=== PATIENT | female | born 1990 | race Caucasian/White ===

== ENCOUNTER → 2019-12-05 11:23 | Outpatient (CLI) | payer BC, SELFPAY ==
--- NOTE | 2019-12-05 11:31 | US_ITS ---
STUDY: SECOND AND THIRD TRIMESTER OBSTETRICAL ULTRASOUND REASON FOR EXAM: Female, 29 years old ANATOMY SCAN LMP: July 23, 2019. TECHNIQUE: Transabdominal TECHNICAL QUALITY: Adequate. PRIOR ULTRASOUND: None. FINDINGS: There is a single intrauterine fetus. The fetus is in a cephalic presentation. There is demonstrated cardiac activity with a heart rate of 150 bpm. There is a normal amniotic fluid volume. The largest amniotic fluid pocket measures 4.5 cm x 6.2 cm. The amniotic fluid index ([place]) is within normal limits. The placenta is anterior in location and is not low lying. There are Grade 0 placental changes. The cervix measures 4.5 cm in length. There is a 2.3 cm x 2.4 cm cyst in the left ovary. BIOMETRY: BPD: 4.7 cm: 20 weeks, 1 days HC: 16.9 cm: 19 weeks, 4 days AC: 14.7 cm: 20 weeks, 0 days FL: 3.3 cm: 20 weeks, 1 days CI: 85% FL/BPD: 70% FL/HC: FL/AC: 22% HC/AC: 1.15 age by current US: 20 weeks, 0 days. SHERRI by current US: April 23, 2020. Estimated weight: 326 grams, +/- 48 grams, 85 %. Age by LMP: 19 weeks, 2 days. SHERRI by LMP: April 28, 2020. ANATOMY: Gender: Male Cranium: Normal lateral ventricles. Normal choroid plexus. Normal cerebellum. Normal cisterna magna. Normal face, nose and lips. Chest: Normal 4-chamber heart. Abdomen/Pelvis: Normal diaphragm. Normal stomach. Normal abdominal wall. Normal cord insertion. Normal 3 vessel cord. Normal kidneys. Normal bladder. Spine: Normal cervical spine. Normal thoracic spine. Normal lumbar spine. Normal sacrum. Extremities: Normal bilateral upper extremities. Normal bilateral lower extremities. US/OB Anatomy Scan IMPRESSION: Single live intrauterine gestation with a mean gestational age of 20 weeks. Electronically Signed: Pablo Luque, at 15:22 EDT , Service support ,
== END ==
PROVIDERS: PCP Internal Medicine
DX: Z36.3 Encounter for antenatal screening for malformations (principal)
CPT/HCPCS: 76805

== ENCOUNTER → 2020-03-07 09:22 | Outpatient (CLI) | payer BC, SELFPAY ==
--- NOTE | 2020-03-07 09:25 | US_ITS ---
STUDY: SECOND AND THIRD TRIMESTER OBSTETRICAL ULTRASOUND - LIMITED REASON FOR EXAM: Female, 29 years old GROWTH LMP: 07/24/2019. PRIOR ULTRASOUND: Comparison is made with prior examination dated 12/05/2019. TECHNIQUE: Transabdominal TECHNICAL QUALITY: Adequate. FINDINGS: There is a single intrauterine fetus. The fetus is in a cephalic presentation. There is demonstrated cardiac activity with a heart rate of 140 bpm. There is a normal amniotic fluid volume. The largest amniotic fluid pocket measures 3.7 cm. The amniotic fluid index ([place]) is 12.1 cm. The placenta is anterior in location and is not low lying. There are Grade 1 placental changes. The cervix measures 3.3 cm in length. BIOMETRY: BPD: 8.53 cm: 34 weeks, 3 days HC: 29.36 cm: 32 weeks, 3 days AC: 28.16 cm: 32 weeks, 2 days FL: 6.38 cm: 33 weeks, 0 days Age by LMP: 32 weeks, 3 days. SHERRI by LMP: 04/29/2020. age by prior US: 33 weeks, 2 days. SHERRI by prior US: 04/23/2020. age by current US: 33 weeks, 1 days. SHERRI by current US: 04/24/2020. Estimated weight: 2017 grams, +/- 2090. grams, 46 percentile. US/OB Limited (No Biometrics) IMPRESSION: Single live intrauterine gestation with a mean gestational age of 33 weeks and 2 days. The measurements obtained today fall within normal expected range. Electronically Signed: Pablo Luque, at 12:53 EDT , Service support ,
== END ==
PROVIDERS: PCP Internal Medicine
DX: O36.5930 Maternal care for other known or suspected poor fetal growth, third trimester, not applicable or unspecified (principal); Z3A.33 33 weeks gestation of pregnancy
CPT/HCPCS: 76815

== ENCOUNTER → 2024-01-04 | Outpatient (CLI) | payer OTHER, SELFPAY ==
--- NOTE | 2024-01-04 12:59 | US_ITS ---
STUDY: ULTRASOUND OF THE FEMALE PELVIS - COMPLETE REASON FOR EXAM: Female, 33 years old. History of polyp in uterus LMP: December 21, 2023. TECHNIQUE: Transabdominal and Transvaginal TECHNICAL QUALITY: Adequate. COMPARISON: None. FINDINGS: The uterus is retroverted and is in a midline position. The uterus measures 8.5 cm x 7 cm x 4.6 cm. There is thickening in the lower uterine segment/cervix with no focal mass lesion. The endometrium measures 12 mm in thickness, and is hyperechoic. There is no demonstrated endometrial mass. There is no demonstrated myometrial mass. I.U.D. - The patient does not have an I.U.D. The right ovary was not visualized. The left ovary is visualized. The left ovary measures 4.6 cm x 3.7 cm x 3 cm. A dominant follicle is seen within it. There is no left ovarian cyst or ovarian mass. There is no visualized left adnexal mass or complex lesion. There is normal arterial and normal venous vascularity. There is no fluid in the cul-de-sac. The pre void volume of the bladder was 436 ml. US/Pelvic w/ Transvaginal IMPRESSION: Thickened endometrium and lower uterine segment as described. No polyp is seen. Electronically Signed: Pablo Luque MD at 14:04 EDT ,
== END | disposition home or self-care (01) ==
LOC: US 12:57 → OPUS 13:03
PROVIDERS: PCP Internal Medicine; Referring Provider Obstetrics & Gynecology; Visit Provider Obstetrics & Gynecology
DX: N84.1 Polyp of cervix uteri (principal); N92.0 Excessive and frequent menstruation with regular cycle
CPT/HCPCS: 76830; 76856

== ENCOUNTER → 2024-02-10 | Outpatient (CLI) | payer OTHER, SELFPAY | END | disposition home or self-care (01) | LOC: LAB 09:17 | PROVIDERS: PCP Internal Medicine; Referring Provider Internal Medicine; Visit Provider Internal Medicine | DX: Z00.00 Encounter for general adult medical examination without abnormal findings (principal) ==

== ENCOUNTER 2024-02-21 09:34 | Day surgery (SDC) | payer OTHER, SELFPAY ==
[2024-02-10 09:42] LABS: Hematocrit 36.5 % (37-47); Hemoglobin 11.8 g/dL (12.0-15.0); Mean Corp Hgb Conc 32.3 g/dL (32-36); Mean Corpuscular Hgb 27.4 pg (27.0-32.0); Mean Corpuscular Volume 84.7 fL (81-99); Mean Platelet Vol. 9.5 fl (6.2-12.0); Platelet Count 227 K/mm3 (150-450); RBC Distribution Width CV 14.1 % (11.6-14.6); RBC Distribution Width SD 43.7 fl (35.1-43.9); Red Blood Count 4.31 M/mm3 (4.2-5.4); White Blood Count 5.7 K/mm3 (4.4-11.0)
[2024-02-10 10:23] LABS: ALB/GLOB Ratio 1.1 RATIO (0.9-2.4); AST(SGOT) 15 U/L (15-37); Alanine Aminotransfer ALT/SGPT 22 U/L (13-56); Albumin, Serum 3.6 g/dL (3.2-5.0); Alkaline Phosphatase 64 U/L (45-117); Anion Gap 6 (5-15); BUN 10 mg/dL (7-18); BUN/Creat Ratio 14.9 RATIO (10-20); Calcium,Total 8.3 mg/dL (8.5-10.1); Chloride 108 mmol/L (98-107); Cholesterol 189 mg/dL (200); Creatinine, Serum 0.67 mg/dL (0.55-1.02); EST Glomerular Filtration Rate 106 mL/min (>60); Est Glom Filt Rate - Afr Amer 128 mL/min (>60); Globulin 3.3 g/dL (2.2-4.2); Glucose 87 mg/dL (74-106); High Density Lipoprotein 66 mg/dL; Potassium 3.8 mmol/L (3.5-5.1); Protein, Total 6.9 g/dL (6.4-8.2); Sodium Level 139 mmol/L (136-145); Triglycerides 47 mg/dL; Very Low Density Lipoprotein 9 mg/dL (5-40)
[2024-02-21] VITALS (11 sets, daily range): BP systolic 107–119; BP diastolic 55–82; PULSE 56–82; RESP 16–17; TEMP 35.9–36.4; O2SAT 98–100; BMI 27.2
--- NOTE | 2024-02-21 09:41 | HP.PCM_ITS ---
History and Physical Date of Admission: 02/21/24 Intake Vital Signs 11/28/2414:40 02/10/2408:52 02/10/2408:54 Height 5 ft 4 in 5 ft 4 in 5 ft 4 in Weight: 154 lb 8 oz 160 lb 6 oz BMI 26.5 27.5 BP 124/76 H 116/80 Intake Visit Reasons: D&C? Telephone Answering Service Operator Required: No Is patient in pain?: No Allergies morphine Allergy (Mild, Verified 02/10/24 08:52) Vomiting Medications ?Medication ?Instructions ?Recorded ?Confirmed ?Type cholecalciferol (vitamin D3) 50 50 mcg PO DAILY 11/29/23 02/10/24 History mcg (2,000 unit) capsule lactobacillus combination no.4 3 3,000 mmu cells PO DAILY 11/29/23 02/10/24 His tory billion cell capsule (Probiotic) melatonin 1 mg tablet 1 mg PO HS PRN sleep 11/29/23 02/10/24 History omega-3 fatty acids 1,000 mg 1,000 mg PO DAILY 11/29/23 02/10/24 History capsule vitamin B complex-vitamin C-folic 1 tab PO DAILY 11/29/23 02/10/24 History acid 400 mcg tablet doxepin 10 mg/mL oral concentrate 3 mg PO QHS PRN sleep 02/07/24 02/10/24 History Post menopausal: No Patient : No : No [facility] Medical History Anxiety Alcohol use Dietary restriction Non-smoker PONV (postoperative nausea and vomiting) History of Clostridioides difficile infection Surgical History History of wisdom tooth extraction (~2011) S/P S/P right oophorectomy S/P removal of ovarian cyst Family History Grandmother CVA (cerebral vascular accident)Other Heart disease Myocardial infarction Social History Smoking Status: Never smoker HPI D&C? Details: NO MERIDA is a 33 year old who presents for annual exam. new patient from [facility]. ( sections). recently in [place] was told has cervix polyp but insurance was not going to cover her. no bleeding with sex. Cycles are heavy but only lasting 1 1/2 days. our ultrasound here shows the following: FINDINGS: The uterus is retroverted and is in a midline position. The uterus measures 8.5 cm x 7 cm x 4.6 cm. There is thickening in the lower uterine segment/cervix with no focal mass lesion. The endometrium measures 12 mm in thickness, and is hyperechoic. There is no demonstrated endometrial mass. There is no demonstrated myometrial mass. I.U.D. - The patient does not have an I.U.D. The right ovary was not visualized. The left ovary is visualized. The left ovary measures 4.6 cm x 3.7 cm x 3 cm. A dominant follicle is seen within it. There is no left ovarian cyst or ovarian mass. There is no visualized left adnexal mass or complex lesion. There is normal arterial and normal venous vascularity. There is no fluid in the cul-de-sac. The pre void volume of the bladder was 436 ml. US/Pelvic w/ Transvaginal IMPRESSION: Thickened endometrium and lower uterine segment as described. No polyp is seen. History Past Pregnancies Del. Date Name GA/Weeks Outcome Route Bth Weight Infant Gen Labor Lgth Anesthesia Del Locatn Provider FOB 05/23/18 Diana 36 live - C-se ction [facility] 03/15/19 12 spontaneous 05/08/20 [facility] 41 live - full term C- section Male [facility] ROS Const ROS Unobtainable: All systems reviewed & are unremarkable except as noted in H Resp Resp: Reports system reviewed and no additional complaints, except as documented; Denies cough GI GI: Reports as per HPI Psych Psych: Reports system reviewed and no additional complaints, except as documented Exam Const General: cooperative, healthy appearing, comfortable and no acute distress Resp Effort & Inspection: normal respiratory effort Skin General: no rashes or lesions noted Psych Appearance: grossly normal Speech and Movement: speech and movement normal Coding Level of Care Code Off vis,est,level 4 Diagnoses Polyp of cervix uteri N84.1 Menorrhagia N92.0 Assessment and Plan Assessment and Plan (1) Polyp of cervix uteri: Status: Acute (2) Menorrhagia: Status: Acute Plan After discussing the patient's diagnosis and treatment plan options, patient wishes to proceed with surgical management. I have discussed with the patient the risks, benefits, and alternatives of the procedure which include but are not limited to risks of anesthesia, bleeding, infection, possible damage to bowel, bladder, or surrounding vasculature which could lead to additional surgery to evaluate any complications. Patient agrees to procedure and wishes to proceed. ACOG/uptodate references given for additional information regarding procedure. plan is for hysteroscopy dilation and curettage, possible polypectomy
--- NOTE | 2024-02-21 09:54 | PCM.PRE.AN2 ---
ASA Classification* ASA Classification ASA Classification: 2 Assessment & Plan Anesthesia* Anesthesia Assessment Anesthesia Assessment: Discussed sedation and/or anesthesia options, risks, benefits, and alternatives with patient/parents/legal guardian/POA. Questions invited. The patient/parents/legal guardian/POA seems to understand and agrees to proceed with anesthesia plan. Reviewed the physical assessment, medical history, allergy history and patient home medications list prior to surgery/procedure/anesthetic and documented any changes. Performed airway and anesthesia risk assessments. Anesthesia Type Anesthesia Type: MAC Anesthesia Focused Assessment* Airway Assessment Mouth opens: >3 cm Mallampati Score: II Focused Labs Anesthesia Preop lab: CBC WBC 5.7 K/mm3 (4.4-11.0) 02/10/24 09:22 RBC 4.31 M/mm3 (4.2-5.4) 02/10/24 09:22 Hgb 11.8 g/dL (12.0-15.0) L 02/10/24 09:22 Hct 36.5 % (37-47) L 02/10/24 09:22 Plt Count 227 K/mm3 (150-450) 02/10/24 09:22 CHEMISTRY Potassium 3.8 mmol/L (3.5-5.1) 02/10/24 09:22 Sodium 139 mmol/L (136-145) 02/10/24 09:22 BUN 10 mg/dL (7-18) 02/10/24 09:22 Creatinine 0.67 mg/dL (0.55-1.02) 02/10/24 09:22 Glucose 87 mg/dL (74-106) 02/10/24 09:22 TSH 0.930 uIU/mL (0.358-3.740) 02/10/24 09:22 COAG Pre-Assessment Diagnosis/Proposed Procedure Planned Operative Procedure(s): Hysteroscopy,Dilation and Curettage Anesthesia History Anesthesia History - behavioral health associate: Anesthesia History - behavioral health associate Hx Hospitalization No 02/07/24 13:58 Any Problems With Anesthesia Yes: ponv - needs pre- 02/07/24 13:58 medicated Cholinesterase deficiency No 02/07/24 13:58 You/Your Family Experience No 02/07/24 13:58 fever (hyperthermia) with Relationship Recent Exposure to Contagious Disease Does patient have nerve No 02/07/24 13:58 stimulator Patient instructed to have device shut off --Does patient have Pacemaker or ICD? When Was Last Pacemaker Check QUESTION #4 FULL TEXT: You/Your Family Experience fever (hyperthermia) with Anesthesia Last Oral Intake Last Oral intake: Last Oral Intake NPO since Meds taken in AM with sips of water? Meds patient instructed to take am of surgery PONV PONV - behavioral health associate: PONV - behavioral health associate Female Yes 02/07/24 13:58 HX of Motion Sickness Yes 02/07/24 13:58 HX of N/V After Surgery Yes 02/07/24 13:58 Non-Smoker Yes 02/07/24 13:58 Duration of Surgery greater No 02/07/24 13:58 than 60 minutes Number of Risk Factors 4 02/07/24 13:58 PONV Score Severe Risk 02/07/24 13:58 Height & Weight Height & Weight: Anesthesia: Height & Weight Height 5 ft 4 in 02/10/24 08:54 Respiratory Assessment Respiratory Assessment - behavioral health associate: Respiratory Tract Infection Hx - behavioral health associate Hx Respiratory Tract Infection No 02/07/24 13:58 STOP Sleep Apnea STOP Sleep Apnea - behavioral health associate: STOP Sleep Apnea - behavioral health associate Hx Hypertension No 02/07/24 13:58 Hx Sleep Apnea No 02/07/24 13:58 CPAP BIPAP Do you snore loudly (louder No 02/07/24 13:58 than talking or can be heard Do you often feel tired/ No 02/07/24 13:58 fatigued/ sleepy during daytime? Has anyone observed you stop No 02/07/24 13:58 breathing during sleep? STOP Results Negative 02/07/24 13:58 QUESTION #5 FULL TEXT : Do you snore loudly (louder than talking or can be heard through closed doors)? Tobacco Use History Tobacco Use History - behavioral health associate: Tobacco Use History - behavioral health associate Tobacco Use Smoking Status Never smoker 02/07/24 13:58 Hx Tobacco Use No 02/07/24 13:58 Years Smoking Packs Smoked per Day Smoking Cessation Date was within the last 15 years Hx Smoking Cessation Date Hx Smoking Cessation Counseling Hematologic Medial History Hematologic Hx - behavioral health associate: Hematologic Medical Hx - mail handler sorter Hx of Blood Transfusion No 02/07/24 13:58 Hx of Transfusion in last 3 No 02/07/24 13:58 Months Date of Last Transfusion (if within last 3 months) Ever experience any problems No 02/07/24 13:58 with transfusion(s)? Specify any problems Hx of Preganancy in last 3 N/A 02/07/24 13:58 Months Nurse Filling Out Transfusion NBUCHER 02/07/24 13:58 & Questions: Date: 02/07/24 02/07/24 13:58 Time: 14:01 02/07/24 13:58 Patient unable to answer at this time (ie. confused, unrespo /Reproduction History /Reproductive History - behavioral health associate: /Reproductive Hx- behavioral health associate Hx Now No 02/07/24 13:58 Gestational Age (in weeks): EDC: Hx Hx Para Hx Section SAB No 02/10/24 08:54 Active Medications Active Medications: Current Medications Generic Name Dose Route Start Last Admin Trade Name Freq PRN Reason Stop Dose Admin Lactated Ringer's 1,000 mls @ 15 mls/hr 02/21/24 09:45 IV .Q48H ANGI PFSH Medical History Anxiety Alcohol use Dietary restriction Non-smoker PONV (postoperative nausea and vomiting) History of Clostridioides difficile infection Home Medications ?Medication ?Instructions ?Recorded ?Last Taken ?Type cholecalciferol (vitamin D3) 50 50 mcg PO DAILY 11/29/23 Unknown History mcg (2,000 unit) capsule lactobacillus combination no.4 3 3,000 mmu cells PO DAILY 11/29/23 Unknown History billion cell capsule (Probiotic) melatonin 1 mg tablet 1 mg PO HS PRN sleep 11/29/23 Unknown History omega-3 fatty acids 1,000 mg 1,000 mg PO DAILY 11/29/23 Unknown History capsule vitamin B complex-vitamin C-folic 1 tab PO DAILY 11/29/23 Unknown History acid 400 mcg tablet doxepin 10 mg/mL oral concentrate 3 mg PO QHS PRN sleep 02/07/24 Unknown History Allergy/AdvReac Type Severity Reaction Status Date / Time morphine Allergy Mild Vomiting Verified 02/21/24 09:44 Family History Grandmother CVA (cerebral vascular accident) Other Heart disease Myocardial infarction Surgical History History of wisdom tooth extraction (~2011) S/P S/P right oophorectomy S/P removal of ovarian cyst Social History Smoking Status: Never smoker Review of Systems (Anesthesia) ROS Narrative System reviewed and no additional complaints, except as documented.
[2024-02-21] MEDS: Lactated Ringers 1,000 ML 15 ML IV (10:02)
[2024-02-21 10:24] LABS: Internal QC Validated? YES +Cl - CLEAR BKGD; Pregnancy, Serum, hCG Quali. NEGATIVE Negative
--- NOTE | 2024-02-21 10:41 | DCINST_ITS ---
Discharge Instructions Diet Discharge Diet: No restrictions Activity Discharge Activity: Return to Normal Activity, May Shower and May Take a Tub Bath (after 1 week) May resume sexual activity in: 1-2 weeks Weight Bearing Status: Weight bearing as tolerated Lifting Restrictions: none Dressing / Incision Call your doctor if you observe: Fever of 101 or Higher, Using more than 1 pad per hour, Shortness of breath and Uncontrolled pain Follow Up Care Please Follow Up With: Natasha Ahmadi DO When: Call [phone] to schedule appointment. Test Results: Test results from this visit will be discussed in further detail at your follow- up appointment, if applicable. Discharge Plan Admission Primary Reason for Your Visit: hysteroscopy dilation and curettage Attending Provider: Natasha Ahmadi Primary Care Provider: Louise Marina Instructions Print Language: Ukrainian Discharge Orders/Prescriptions Prescriptions: New naproxen 500 mg tablet 500 mg PO BID PRN (Reason: pain) Qty: 15 0RF Continued B complex-vitamin C-folic acid 400 mcg tablet 1 tab PO DAILY cholecalciferol (vitamin D3) 50 mcg (2,000 unit) capsule 50 mcg PO DAILY omega-3 fatty acids 1,000 mg capsule 1,000 mg PO DAILY melatonin 1 mg tablet 1 mg PO HS PRN (Reason: sleep) Probiotic 3 billion cell capsule 3,000 mmu cells PO DAILY Rx Instructions: administer with a meal doxepin 10 mg/mL concentrate 3 mg PO QHS PRN (Reason: sleep) Referrals / Follow Up: Louise Marina DO [Primary Care Provider] - Disposition Disposition (needs filled in before D/C Order can be placed): Home, Self Care
[2024-02-21] MEDS: Lidocaine 1% (20 ml mdv) 20 ML Vial (11:08)
--- NOTE | 2024-02-21 11:26 | PCM.POST.ANE ---
Anesthesia: Postop Eval I Current Vital Signs Temperature: 97.1 F Pulse Rate: 73 Blood Pressure: 107/76 Respiratory Rate: 16 Pulse Ox: 99 Oxygen Delivery Method: Room Air Assessment Airway patent: Yes Spontaneous unlabored respirations: Yes Mental status: Awake and Calm nausea: No Vomiting: No Anesthesia Complication: No Fluid Hydration Crystalloid volume administer (ml): 600 Total IV fluid infused: 600 Progress Note Anesthesia document: Postop Eval 1 completed: Yes
--- NOTE | 2024-02-21 11:47 | OP.PCM_ITS ---
Problems Associated Problem List Diagnoses (1) Menorrhagia: (2) Polyp of cervix uteri: Report of Operation Date of Procedure: 02/21/24 Pre-Operative Diagnosis: menorrhagia, suspected lower uterine polyp or fibroid Post-Operative Diagnosis: menorrhagia, suspected lower uterine polyp or fibroid Surgery/Procedure Performed:: hysteroscopy Description of Surgical Findings:: firm, stenotic cervix Surgeon: Natasha Ahmadi time signal wirer: None Type of Anesthesia: MAC and Topical Anesth Specimen's removed: none Estimated Blood Loss (mL): 5cc Description of Procedure: Patient was prepped and draped in a normal sterile fashion under MAC anesthesia. A weighted speculum was placed in the vagina and the anterior lip of the cervix was grasped with a single-tooth tenaculum. A paracervical block was placed with 1% lidocaine. Cervix was progressively dilated to allow passage of a 5 mm hysteroscope. This was with some difficulty due to a stenotic cervix and thought of a possible lower uterine segment fibroid based on the firmness of the cervical tissue. It was evident that a tiny posterior uterine perforation was present from the dilation portion of the procedure and the procedure was ended. There was no bleeding and the perforation was noted to be midline. All instruments were removed from the vagina. The patient tolerated the procedure well. Sponge, lap, and needle counts were correct x 2 Grafts/Implants Used: none Procedure Start Time: 11:08 Procedure Stop Time: 11:15 Admit VTE Documentation VTE Present on Admission: No VTE Mechan Device Prophylaxis: SCD's Multi Select Codes Urinary/Genital Urinary/Genital CPT Codes: 98005 Hysteroscopy, diagnostic
--- NOTE | 2024-02-21 14:14 | POSTOPAN2_ITS ---
Anesthesia Postop Eval I Sum Postop Eval Completion status Anesthesia document: Postop Eval 1 completed: Yes Anesthesia Postop Eval I Summary Anesthesia Postop Eval I Summary: Anesthesia Postop Eval I: Assessment Summary Airway patent Yes 02/21/24 11:27 PLAYER DEVELOPMENT EXECUTIVE.JDEF Spontaneous unlabored Yes 02/21/24 11:27 PLAYER DEVELOPMENT EXECUTIVE.JDEF respirations Mental status Awake,Calm 02/21/24 11:27 PLAYER DEVELOPMENT EXECUTIVE.JDEF nausea No 02/21/24 11:27 PLAYER DEVELOPMENT EXECUTIVE.JDEF Vomiting No 02/21/24 11:27 PLAYER DEVELOPMENT EXECUTIVE.JDEF Anesthesia Postop Eval I: Fluid Summary Crystalloid volume administer 600 02/21/24 11:27 PLAYER DEVELOPMENT EXECUTIVE.JDEF (ml) Colloids volume administered ( ml) Blood Product volume administered (ml) Total IV fluid infused 600 02/21/24 11:27 PLAYER DEVELOPMENT EXECUTIVE.JDEF Anesthesia Postop Eval I: Summary Notes Anesthesia Complication No 02/21/24 11:27 PLAYER DEVELOPMENT EXECUTIVE.JDEF Anesthesia Complication Comment: Post-operative progress note Anesthesia: Postop Eval II Evaluation Mental status: Awake and Calm Pain Level: 1 nausea: No Vomiting: No Complications Anesthesia Complication: No
--- NOTE | 2024-02-21 14:14 | PCM.POSTANE2 ---
Anesthesia Postop Eval I Sum Postop Eval Completion status Anesthesia document: Postop Eval 1 completed: Yes Anesthesia Postop Eval I Summary Anesthesia Postop Eval I Summary: Anesthesia Postop Eval I: Assessment Summary Airway patent Yes 02/21/24 11:27 RULING MACHINE SET UP OPERATOR.JDEF Spontaneous unlabored Yes 02/21/24 11:27 RULING MACHINE SET UP OPERATOR.JDEF respirations Mental status Awake,Calm 02/21/24 11:27 RULING MACHINE SET UP OPERATOR.JDEF nausea No 02/21/24 11:27 RULING MACHINE SET UP OPERATOR.JDEF Vomiting No 02/21/24 11:27 RULING MACHINE SET UP OPERATOR.JDEF Anesthesia Postop Eval I: Fluid Summary Crystalloid volume administer 600 02/21/24 11:27 RULING MACHINE SET UP OPERATOR.JDEF (ml) Colloids volume administered ( ml) Blood Product volume administered (ml) Total IV fluid infused 600 02/21/24 11:27 RULING MACHINE SET UP OPERATOR.JDEF Anesthesia Postop Eval I: Summary Notes Anesthesia Complication No 02/21/24 11:27 RULING MACHINE SET UP OPERATOR.JDEF Anesthesia Complication Comment: Post-operative progress note Anesthesia: Postop Eval II Evaluation Mental status: Awake and Calm Pain Level: 1 nausea: No Vomiting: No Complications Anesthesia Complication: No
== END 2024-02-21 13:01 | disposition home or self-care (01) ==
LOC: SDC 09:35 → AC 09:36
PROVIDERS: Anesthesiology; PCP Internal Medicine; Referring Provider Internal Medicine; Visit Provider Obstetrics & Gynecology
PROC: 0UDB8ZZ Extraction of Endometrium, Via Natural or Artificial Opening Endoscopic (ICD-10-PCS; CPT 58558; principal; 2024-02-21 10:45)
DX: N92.0 Excessive and frequent menstruation with regular cycle (principal); Z86.19 Personal history of other infectious and parasitic diseases; Z90.721 Acquired absence of ovaries, unilateral; N84.1 Polyp of cervix uteri
CPT/HCPCS: 58555; 00952; 36415; 80053; 80061; 84443; 84703; 85027; 86850; 86900; 86901; J7120; J2405

== ENCOUNTER → 2024-04-06 | Outpatient (CLI) | payer OTHER, SELFPAY ==
--- NOTE | 2024-04-06 14:12 | MRI_ITS ---
EXAM: MR PELVIS WITHOUT AND WITH INTRAVENOUS CONTRAST CLINICAL INDICATION: menorrhagia TECHNIQUE: Multiplanar and multisequence MR images of the pelvis without and with intravenous contrast. CONTRAST: 15CC CLARISCAN COMPARISON: No relevant prior studies available. FINDINGS: INTRAPERITONEAL SPACE: Physiological amount of free fluid noted within the pelvis. BLADDER: Urinary bladder is contracted which may account for the wall thickening. OVARIES: Left ovary measures 3.1 x 1.8 cm and contains several follicles measuring 10 mm and less in size. Right ovary not identified. UTERUS/CERVIX: Retroverted uterus measures 10.2 x 7.0 x 5.0 cm. Endometrial thickness is 12 mm. No evidence of uterine mass. BONES/JOINTS: Normal. SOFT TISSUES: Normal. No pelvic wall hernia. LYMPH NODES: Normal. No enlarged lymph nodes. MRI/Pelvis W/WO Contrast IMPRESSION: 1. Mildly enlarged retroverted uterus without evidence of myometrial or endometrial lesion. 2. Normal left ovary. Electronically Signed: Rodney Saravia MD at 16:13 EDT ,
== END | disposition home or self-care (01) ==
LOC: MRI 13:20
PROVIDERS: PCP Internal Medicine; Referring Provider Obstetrics & Gynecology; Visit Provider Obstetrics & Gynecology
DX: N92.0 Excessive and frequent menstruation with regular cycle (principal)
CPT/HCPCS: 72197; A9575